=== PATIENT | female | born 1975 | race Caucasian/White ===

== ENCOUNTER 2017-12-28 23:33 | Emergency (ER) | payer SELFPAY ==
[2017-12-28 23:34] VITALS: BP 109/78; PULSE 92; RESP 18; TEMP 37.1; O2SAT 97; BMI 29.8
[2017-12-28 23:42] VITALS: O2SAT 97
[2017-12-28] MEDS: Ipratropium/Albuterol Sulfate 3 ML AMPUL.NEB INHALATION (23:52)
[2017-12-28 23:53] VITALS: PULSE 95; RESP 12
--- NOTE | 2017-12-29 00:19 | ED.DCSUM_ITS ---
- ER Visit Summary Date of Service: 12/29/17 Chief Complaint: [Cough and shortness of breath] History of Present Illness: The patient is a 42 F [presents to the emergency department complaint of cough and shortness of breath that started about a week ago. Patient complains of some mild exertional dyspnea. Patient states the cough has become productive recently but she swallows the sputum and has not really looked at it. Patient said subjective fever at home as well as chills and sweats. 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 Patient denies any ear pain. She denies any sore throat. She denies any chest pain. She denies recent travel or surgery.] Physical Examination: [HEENT-PERRLA, EOMI. Cranial nerves II through XII grossly intact. TMs clear. Mucous membranes moist. No adenopathy. Cardiovascular-regular rate and rhythm without murmur or ectopy Lungs-clear to auscultation, chest wall stable without crepitus or subcu emphysema Abdomen-normoactive bowel sounds, soft, nontender, no rebound or rigidity, no peritoneal signs. Extremities-intact ?4, normal range of motion, normal pulses, atraumatic] Test Results: [None indicated] Emergency Department Course and Treatment: [Patient was given a DuoNeb aerosol and she did symptomatically feel improved.] Patient was given a dose of Zithromax. Treatment Plan: [Patient will be given a albuterol MDI and a prescription for Zithromax.] Disposition: [Discharged home in stable condition] Impression: [Bronchitis] This note was generated with [employer] dictation software. It may contain incorrect words, spelling, and punctuation that were not noted in review of the chart prior to signing ED Disposition - Plan for ED Patient: Chief Complaint: Shortness of Breath Referrals: Care Physician,No Primary [Primary Care Provider] -
--- NOTE | 2017-12-29 00:19 | ED.DEP ---
ED Disposition - Plan for ED Patient: Chief Complaint: Shortness of Breath Instructions: ED Upper Resp Infec Abx Tx Prescriptions: Azithromycin [Zithromax] 250 mg PO DAILY #4 tab Benzonatate [Tessalon Perle] 200 mg PO TID PRN PRN #20 cap PRN Reason: Cough Referrals: Care Physician,No Primary [Primary Care Provider] - Osmar Hinojosa MD [STAFF PHYSICIAN] - 5-7 Days
[2017-12-29 00:24] VITALS: BP 132/86; PULSE 88; RESP 16; O2SAT 98
[2017-12-29] MEDS: Azithromycin 250 MG Tablet 500 MG PO (00:25)
== END 2017-12-29 00:34 | disposition home or self-care (01) ==
LOC: ED 12-29 00:07
PROVIDERS: Emergency Provider Emergency Medicine
DX: J40 Bronchitis, not specified as acute or chronic (principal); Z72.0 Tobacco use
CPT/HCPCS: 94640; 99283

== ENCOUNTER 2018-02-07 16:23 | Emergency (ER) | payer OTHER, SELFPAY ==
[2018-02-07 16:24] VITALS: BP 103/64; PULSE 76; RESP 16; TEMP 36.7; O2SAT 98; BMI 30.9
--- NOTE | 2018-02-07 16:39 | ED.DEP ---
ED Disposition - Plan for ED Patient: Chief Complaint: Other, Pain/Inj Instructions: ED Sciatica Referrals: [facility] [GROUP OF PHYSICIANS] -
--- NOTE | 2018-02-07 16:43 | ED.VISSUMM ---
- ER Visit Summary Date of Service: 02/07/18 Chief Complaint: Back pain History of Present Illness: The patient is a 42 F presenting with left-sided back pain. 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 She states this occurred again today. She later had a sensation that went from her foot to her neck that has now resolved. She has no bowel or bladder incontinence. No weakness. She is able to ambulate without difficulty. No other complaints. Physical Examination: Vitals are stable. Patient is afebrile. Alert no acute distress. HEENT exam is unremarkable. Neck is supple, nontender Lungs are clear and equal bilaterally. Heart is regular rate and rhythm. Abdomen is soft nontender nondistended. Extremities are unremarkable. Back: Left paraspinal lumbar muscle tenderness, no midline tenderness Skin is warm and dry. No rash No focal neurologic deficit. Normal strength and sensation. No foot drop Remainder of exam is unremarkable. Emergency Department Course and Treatment: Patient was offered IM or p.o. medications and declined. She states she was advised by her employer to come to the ED. I do not feel x-rays are indicated at this time. She will follow-up with [facility]. She is advised signs and symptoms for which to return to ED. She will return to the ED if worsening complaints. Disposition: Discharge home Impression: Sciatica This note was generated with [employer] dictation software. It may contain incorrect words, spelling, and punctuation that were not noted in review of the chart prior to signing ED Disposition - Plan for ED Patient: Chief Complaint: Other, Pain/Inj Instructions: ED Sciatica Referrals: [facility] [GROUP OF PHYSICIANS] -
--- NOTE | 2018-02-07 16:47 | ED.DCSUM_ITS ---
- ER Visit Summary Date of Service: 02/07/18 Chief Complaint: Back pain History of Present Illness: The patient is a 42 F presenting with left-sided back pain. 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 She states this occurred again today. She later had a sensation that went from her foot to her neck that has now resolved. She has no bowel or bladder incontinence. No weakness. She is able to ambulate without difficulty. No other complaints. Physical Examination: Vitals are stable. Patient is afebrile. Alert no acute distress. HEENT exam is unremarkable. Neck is supple, nontender Lungs are clear and equal bilaterally. Heart is regular rate and rhythm. Abdomen is soft nontender nondistended. Extremities are unremarkable. Back: Left paraspinal lumbar muscle tenderness, no midline tenderness Skin is warm and dry. No rash No focal neurologic deficit. Normal strength and sensation. No foot drop Remainder of exam is unremarkable. Emergency Department Course and Treatment: Patient was offered IM or p.o. medications and declined. She states she was advised by her employer to come to the ED. I do not feel x-rays are indicated at this time. She will follow-up with [facility]. She is advised signs and symptoms for which to return to ED. She will return to the ED if worsening complaints. Disposition: Discharge home Impression: Sciatica This note was generated with [employer] dictation software. It may contain incorrect words, spelling, and punctuation that were not noted in review of the chart prior to signing ED Disposition - Plan for ED Patient: Chief Complaint: Other, Pain/Inj Instructions: ED Sciatica Referrals: [facility] [place] [GROUP OF PHYSICIANS] -
== END 2018-02-07 17:21 | disposition home or self-care (01) ==
PROVIDERS: Emergency Provider Emergency Medicine
DX: M54.42 Lumbago with sciatica, left side (principal); Z72.0 Tobacco use
CPT/HCPCS: 99282

== ENCOUNTER 2018-03-17 14:14 | Emergency (ER) | payer OTHER, SELFPAY ==
[2018-03-17 14:16] VITALS: BP 113/57; PULSE 82; RESP 14; TEMP 36.8; O2SAT 97; BMI 29.1
--- NOTE | 2018-03-17 14:40 | RAD_ITS ---
STUDY: X-RAY - RIGHT SHOULDER REASON FOR EXAM: Female, 42 years old. Pain following injury. TECHNIQUE: 4 view(s) of the shoulder. COMPARISON: None. FINDINGS: Normal glenohumeral articulation. Normal acromioclavicular joint. Normal acromion. Normal humeral head and visualized proximal humerus. The soft tissue structures are unremarkable. Normal visualized pulmonary apex. RAD/Shoulder min 2 Views IMPRESSION: Normal x-ray examination of the shoulder. Electronically Signed: Fabian Swain MD at 15:14 EST , Service support ,
[2018-03-17] MEDS: Naproxen 500 MG Tablet PO (14:42)
--- NOTE | 2018-03-17 15:42 | ED.DCSUM_ITS ---
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 She continued to work and noted that her pain would worsen when she would hang her arm to her side. Someone touched on the back of her shoulder causing significant pain. She denies paresthesias. She is right-hand dominant. Physical Examination: Vital signs unremarkable. Patient sitting upright in bed no acute distress. Head neck examination unremarkable. No C-spine tenderness. Heart is regular rate and rhythm. Lung sounds are clear. Right upper extremity examination reveals reproducible tenderness of the posterior shoulder along the supraspinatus muscle and tendon. She is full range of motion at the shoulder. She has strong distal pulses. Test Results: Right shoulder x-rays are unremarkable. Emergency Department Course and Treatment: Test results are discussed with the patient. I am concerned that she may have strained the tendon from the supraspinatus muscle. She will be given Naprosyn and a sling. She will follow up with [facility]. Treatment Plan: [] Disposition: Discharge Impression: Right shoulder sprain This note was generated with [employer] dictation software. It may contain incorrect words, spelling, and punctuation that were not noted in review of the chart prior to signing ED Disposition - Plan for ED Patient: Disposition: Home or Assisted Living Instructions: ED Sprain Shoulder Prescriptions: Naproxen [Naprosyn] 500 mg PO BID PRN PRN #20 tablet PRN Reason: Pain [facility] [GROUP [facility] PHYSICIANS] - 3-5 Days
--- NOTE | 2018-03-17 15:42 | ED.DEP ---
ED Disposition - Plan for ED Patient: Disposition: Home or Assisted Living Instructions: ED Sprain Shoulder Prescriptions: Naproxen [Naprosyn] 500 mg PO BID PRN PRN #20 tablet PRN Reason: Pain Referrals: [facility] [GROUP OF PHYSICIANS] - 3-5 Days
[2018-03-17 15:55] VITALS: BP 113/47; PULSE 63; RESP 18; O2SAT 100
== END 2018-03-17 15:56 | disposition home or self-care (01) ==
PROVIDERS: Emergency Provider Emergency Medicine
DX: S43.401A Unspecified sprain of right shoulder joint, initial encounter (principal); Z72.0 Tobacco use; X50.0XXA Overexertion from strenuous movement or load, initial encounter; X50.9XXA Other and unspecified overexertion or strenuous movements or postures, initial encounter; Y93.F2 Activity, caregiving, lifting; Y92.128 Other place in nursing home as the place of occurrence of the external cause; Y99.0 Civilian activity done for income or pay
CPT/HCPCS: 73030; 99283

== ENCOUNTER → 2020-01-09 10:46 | Outpatient (CLI) | payer MEDICAID, SELFPAY ==
[2020-01-09 10:12] VITALS: BMI 29.9
[2020-01-09 13:35] LABS: T4 Free Direct 0.91 ng/dL (0.76-1.46); Thyroid Stim Hormone (TSH) 0.88 uIU/mL (0.358-3.74)
[2020-01-10 16:08] LABS: Thyroid Peroxidase AB < 9 IU/mL (0-34)
== END ==
PROVIDERS: Referring Provider Internal Medicine Endocrinology, Diabetes & Metabolism; Visit Provider Internal Medicine Endocrinology, Diabetes & Metabolism
DX: E04.2 Nontoxic multinodular goiter (principal)
CPT/HCPCS: 36415; 84439; 84443; 86376

== ENCOUNTER 2020-01-16 18:08 | Emergency (ER) | payer MEDICAID, SELFPAY ==
[2020-01-09 10:12] VITALS: BMI 29.9
[2020-01-16 18:09] VITALS: BP 126/70; PULSE 97; RESP 18; TEMP 37.5; O2SAT 98; BMI 30.5
[2020-01-16 18:46] VITALS: O2SAT 97
--- NOTE | 2020-01-16 19:36 | ED.VISSUMM ---
- ER Visit Summary Date of Service: 01/16/20 Chief Complaint: Cough and shortness of breath History of Present Illness: The patient is a 44 F who presents with cough and shortness of breath that began today. Patient states she feels like she has some squeezing in her chest. Patient states this is worse with deep breathing. Patient states she feels like she is unable to take a deep breath. Patient states she has been coughing up some yellow sputum. Patient also admits to some sinus pressure and rhinorrhea. Patient denies any fevers or chills. Patient states she does feel lightheaded at times. Patient states she also has had some nausea and vomiting today. Patient states she called her doctor who told her she has Covid and needs to go to the ER. Physical Examination: Vital signs are stable. Patient is afebrile. Patient is in no acute distress. Oral mucosa is pink and moist. Neck is supple. Trachea is midline. There is no JVD noted. Heart was regular rate and rhythm. Lungs are clear and equal bilaterally. Abdomen is soft. Bowel sounds are normal. There is no tenderness. There is no rebound or guarding noted. Skin is warm dry. Cranial nerves II through XII are intact. There are no focal motor or sensory deficits noted. Extremities are intact. There is no calf tenderness or edema. Test Results: Portable 1 view chest x-ray was obtained. On my interpretation, lung mcduffie are clear. There is normal cardiac silhouette. Bony thorax is normal. There is no acute process noted. Radiologist also interpreted the x-ray and agrees. CBC and comprehensive metabolic profile were obtained and were within normal limits. D-dimer was normal. Lactate was normal. Covid antigen test was obtained and was positive. Emergency Department Course and Treatment: Patient was advised of her findings. Patient was instructed to quarantine herself for the next 2 weeks. Patient was instructed to follow-up with her primary care physician in 7-10 days. Patient understood and was agreeable with the plan. All questions were answered. Disposition: Discharge home Impression: 1. COVID-19 This note was generated with [employer].ruation software. It may contain incorrect words, spelling, and punctuation that were not noted in review of the chart prior to signing ED Disposition - Plan for ED Patient: Disposition: Home or Assisted Living Diagnosis: COVID-19 Instructions: Coronavirus Disease 2019 (COVID-19): Caring for Yourself or Others, Coronavirus Disease 2019 (COVID-19): Overview Referrals: Care Physician,No Primary [Primary Care Provider] - 1-2 Weeks
[2020-01-16 20:08] VITALS: BP 112/65; PULSE 88; RESP 15; O2SAT 96
[2020-01-16 20:13] LABS: Absolute Lymphocyte Count 1.67 X10^3/uL (0.83-4.51); Absolute Neutrophil Count 5.4 X10^3/uL (2.0-7.7); Basophil# 0.07 X10^3/uL; Basophil% 0.8 % (0-1); Eosinophil# 0.24 X10^3/uL; Eosinophils% 2.9 % (0-5); Hematocrit 44.1 % (37-47); Hemoglobin 14.5 g/dL (12.0-15.0); Lymphocyte # 1.67 X10^3/ul (4.0); Lymphocyte % 20.2 % (19-41); Mean Corp Hgb Conc 32.9 g/dL (32-36); Mean Corpuscular Hgb 28.7 pg (27.0-32.0); Mean Corpuscular Volume 87.3 fL (81-99); Mean Platelet Vol. 9.8 fl (6.2-12.0); Monocyte# 0.86 X10^3/uL; Monocyte% 10.4 % (0-10); NRBC Flagged by Analyzer 0 % (0-5); Neutrophil # 5.41 X10^3/uL (2.7-7.7); Neutrophil % 65.5 % (47-70); Platelet Count 314 K/mm3 (150-450); RBC Distribution Width SD 44.5 fl (35.1-43.9); Red Blood Count 5.05 M/mm3 (4.2-5.4); White Blood Count 8.3 K/mm3 (4.4-11.0)
--- NOTE | 2020-01-16 20:19 | RAD_ITS ---
STUDY: X-RAY CHEST REASON FOR EXAM: Female, 44 years old. COUGH, SOB TECHNIQUE: Single frontal view of the chest. COMPARISON: None. FINDINGS: There is no focal consolidation. Normal size heart. Normal mediastinum and terri. Normal visualized pulmonary arteries. Normal visualized aortic arch and descending thoracic aorta. Normal visualized thoracic spine. Normal visualized ribs, clavicles, and shoulders. There is no demonstrated abnormality of the visualized soft tissue structures of the upper abdomen. RAD/Chest 1 View (Portable) IMPRESSION: No acute cardiopulmonary process. Electronically Signed: Zuri Treviño MD at 20:33 EST Tel , Service support ,
[2020-01-16 20:28] LABS: ALB/GLOB Ratio 1.3 RATIO (0.9-2.4); AST(SGOT) 18 U/L (15-37); Alanine Aminotransfer ALT/SGPT 27 U/L (13-56); Albumin, Serum 3.6 g/dL (3.2-5.0); Alkaline Phosphatase 94 U/L (45-117); Anion Gap 4 (5-15); BUN 16 mg/dL (7-18); BUN/Creat Ratio 16.2 RATIO (10-20); Calcium,Total 8.5 mg/dL (8.5-10.1); Chloride 113 mmol/L (98-107); Creatinine, Serum 0.99 mg/dL (0.55-1.02); EST Glomerular Filtration Rate 65 mL/min (>60); Est Glom Filt Rate - Afr Amer 78 mL/min (>60); Estimated Creatinine Clearance 79.23 ml/min; Globulin 2.8 g/dL (2.2-4.2); Glucose 127 mg/dL (74-106); Potassium 3.9 mmol/L (3.5-5.1); Protein, Total 6.4 g/dL (6.4-8.2); Sodium Level 142 mmol/L (136-145)
[2020-01-16 21:00] VITALS: BP 100/55; PULSE 90; RESP 14; O2SAT 97
[2020-01-16 21:03] LABS: Lactic Acid 0.8 mmol/L (0.4-1.9)
[2020-01-16 21:49] VITALS: BP 109/57; PULSE 83; RESP 13; O2SAT 98
[2020-01-16 22:17] VITALS: BP 109/57; PULSE 83; RESP 13; O2SAT 98
== END 2020-01-16 22:47 | disposition home or self-care (01) ==
PROVIDERS: Emergency Provider Emergency Medicine
DX: U07.1 COVID-19 (principal); F32.9 Major depressive disorder, single episode, unspecified; Z72.0 Tobacco use; Z79.899 Other long term (current) drug therapy
CPT/HCPCS: 71045; 80053; 83605; 85025; 85379; 87426; 99285; A4216

== ENCOUNTER 2020-07-08 19:34 | Emergency (ER) | payer MEDICAID, SELFPAY ==
[2020-07-08 19:35] VITALS: BP 109/73; PULSE 84; RESP 16; TEMP 36.7; O2SAT 96; BMI 30.8
--- NOTE | 2020-07-08 20:39 | EDS_ITS ---
HPI History of Present Illness Chief Complaint: Headache Informant: patient Onset/Context/Timing Onset: Today Context: Gradual Timing: Continuous Quality -Headache: Positive for Similar Prior Headaches Location: Frontal Worsened by: Light Relieved by: Excedrin Migraine Associated Symptoms/Injury Associated Symptoms: Positive for Nausea, Vomiting, Preceding Aura, Visual Changes, Blurred Vision and Photophobia; Negative for Fever, Sore Throat, Sinus Pressure, Numbness, Tingling and Visual Loss Narrative Narrative: Patient presents with migraine headache that began today. Patient states it began when she woke up and has gradually gotten worse throughout the day. Patient states she has a history of migraine headaches. Patient states this feels similar to prior migraine headaches. Patient states the pain is over the frontal area. Patient admits to some scotoma earlier today. Patient also admits to some blurred vision. Patient states that when she sees spots and her vision gets blurry, she knows migraine is coming. Patient states she took some Excedrin Migraine along with some coffee. Patient states she had an episode of nausea and vomiting after that. Patient states she went to lay down and her headache improved slightly when she woke up. Patient states that it then got worse again. Patient denies any trauma or injury. Patient admits to some photophobia. [facility] Medical History (Updated 07/08/20 @ 21:[address] Phan Avery DO) Back pain Endometrial Ablation Headache Osteoarthritis Tubal occlusion Home Medications bupropion HCl 150 mg PO DAILY 01/16/20 [History Last Taken Unknown] meloxicam 15 mg PO DAILY 01/16/20 [History Last Taken Unknown] Allergy/AdvReac Type Severity Reaction Status Date / Time No Known Allergies Allergy Verified 01/16/20 18:47 Family History Father Alcohol abuse Cancer Mother Anxiety Depression mental disorders Seizures Grandmother Arthritis Hypertension Grandfather Myocardial infarction Surgical History History of partial hysterectomy Social History Smoking Status: Current every day smoker tobacco type: cigarettes ROS ROS ED Constitutional Constitutional ED: Reports chills, subjective and sweats; Denies fever(s) Eyes Eyes: Reports blurry vision and change in vision ENT ENT ED: Denies rhinorrhea or sore throat Cardiovascular Cardiovascular: Denies chest pain or palpitations Respiratory/Chest Respiratory/Chest: Denies cough or dyspnea Gastrointestinal Gastrointestinal: Reports nausea and vomiting Genitourinary Genitourinary ED: Denies dysuria or hematuria Musculoskeletal Musculoskeletal: Denies back pain or neck pain Integumentary Denies abscess or rash Neurologic Neurologic: Reports headache(s); Denies paresthesias or weakness Allergic/Immunologic Allergic/Immunologic ED: Denies mouth swelling or urticaria EXAM Physical Exam Const Vital Signs: 07/08/20 19:35 07/08/20 21:08 Temperature 98.0 F Temperature Source Temporal Pulse Rate 84 Respiratory Rate 16 16 Blood Pressure 109/73 Blood Pressure Mean 85 Pulse Ox 96 Oxygen Delivery Method Room Air Positive well nourished and well developed General Appearance ED: well developed HEENT Reports normocephalic and moist mucous membranes Neck supple and no JVD Resp normal respiratory effort and clear to auscultation bilaterally Cardio regular rate and regular rhythm GI non-tender and non-distended Auscultation: normoactive bowel sounds Palpation: soft Neuro oriented x3 and CN's II-XII intact bilaterally Sensorium / Orientation: awake and alert Speech: speech normal Motor Exam: strength 5/5 throughout Psych mental status grossly normal MDM MDM MDM Narrative Medical decision making narrative: Patient was given IV fluids, Reglan, Benadryl, and Toradol. Patient felt better on reevaluation. Patient wants to go home. Patient was instructed to rest in a dark quiet room. Patient was instructed drink plenty of fluids. Patient was instructed to follow-up with her primary care physician in 5 to 7 days. Patient understood and was agreeable with the plan. All questions were answered. Discharge Plan Triage Chief Complaint: Headache ED Provider: Phan Avery Dx/Rx/DC Orders Clinical Impression: Headache, migraine Instructions: ED, Migraine (Classical) Prescriptions: No Action meloxicam 15 MG tablet 15 mg PO DAILY RF: 0 bupropion HCl 150 MG tablet extended release 24 hr 150 mg PO DAILY RF: 0 Primary Care Provider: Care Physician,No Primary Referrals: Care Physician,No Primary [Primary Care Provider] - 5-7 Days Disposition Disposition: Home, self care
[2020-07-08 21:08] VITALS: RESP 16
[2020-07-08] MEDS: 0.9% Normal Saline 1,000 ML 999 ML IV (21:13)
[2020-07-08] MEDS: Metoclopramide 10 MG/2 ML Vial IV (21:14)
[2020-07-08] MEDS: Ketorolac 30 MG/ML Syringe IV (21:14)
== END 2020-07-08 21:55 | disposition home or self-care (01) ==
PROVIDERS: Emergency Provider Emergency Medicine
DX: G43.909 Migraine, unspecified, not intractable, without status migrainosus (principal); F17.210 Nicotine dependence, cigarettes, uncomplicated
CPT/HCPCS: 96361; 96374; 96375; 99282; J7030; A4216

== ENCOUNTER → 2020-08-01 11:08 | Outpatient (CLI) | payer MEDICAID, SELFPAY ==
[2020-07-08 19:35] VITALS: BMI 30.8
--- NOTE | 2020-08-01 11:11 | RAD_ITS ---
STUDY: X-RAY - LUMBAR SPINE REASON FOR EXAM: Female, 45 years old. FACET ARTHROPATHY TECHNIQUE: view(s) of the lumbar spine were obtained. COMPARISON: None FINDINGS: Normal lumbar lordosis. There is no substantial scoliosis. There is a normal alignment of the vertebrae. Normal vertebral bodies and endplates. Normal disc space heights throughout the lumbar spine except to note moderate. Narrowing and osteophyte formation at the level of L5-S1 There is no evidence of spondylolysis or spondylolisthesis. Otherwise the spinous and transverse processes as well as the pedicles are intact. The soft tissue structures are unremarkable. RAD/Lumbar Spine 2 or 3 Views IMPRESSION: Narrowing of L5-S1 with minimal osteophyte formation. Electronically Signed: Kayce Barnes, at 12:04 EDT Tel , Service support ,
--- NOTE | 2020-08-01 11:11 | RAD_ITS ---
STUDY: X-RAY EXAMINATION: SCOLIOSIS SERIES REASON FOR EXAM: Female, 45 years old. SCOLIOSIS TECHNIQUE: 1 view(s) of the thoracolumbar spine were obtained in the upright standing position. COMPARISON: None. FINDINGS: There is a 5 degree dextroscoliosis of the thoracic spine with the apex of the convexity at the T7 level. There is a 11 degree levoscoliosis scoliosis of the lumbar spine with the apex of the convexity at the L2 level. Normal kyphosis of the thoracic spine. Normal thoracic vertebrae and endplates. Normal disc space heights of the thoracic spine. Normal lordosis of the lumbar spine. Normal lumbar vertebrae and endplates. Normal disc space heights of the lumbar spine. The soft tissue structures are unremarkable. RAD/Scoliosis 1 view IMPRESSION: Mild dextro scoliosis of the thoracic spine and levoscoliosis lumbar spine as described above. Electronically Signed: Pranay Beavers MD at 12:08 EDT Tel , Service support ,
[2020-08-01 11:20] LABS: Red Blood Cells-Urine 0 SEEN /hpf (0-5)
[2020-08-01 12:26] LABS: Absolute Lymphocyte Count 2.98 X10^3/uL (0.83-4.51); Absolute Neutrophil Count 5.9 X10^3/uL (2.0-7.7); Basophil# 0.07 X10^3/uL; Basophil% 0.7 % (0-1); Eosinophil# 0.19 X10^3/uL; Eosinophils% 1.9 % (0-5); Hematocrit 44.8 % (37-47); Hemoglobin 14.7 g/dL (12.0-15.0); Lymphocyte # 2.98 X10^3/ul (0.83-4.51); Lymphocyte % 30.5 % (19-41); Mean Corp Hgb Conc 32.8 g/dL (32-36); Mean Corpuscular Hgb 28.4 pg (27.0-32.0); Mean Corpuscular Volume 86.5 fL (81-99); Mean Platelet Vol. 9.4 fl (6.2-12.0); Monocyte# 0.62 X10^3/uL; Monocyte% 6.3 % (0-10); NRBC Flagged by Analyzer 0 % (0-5); Neutrophil # 5.87 X10^3/uL (2.7-7.7); Neutrophil % 60.2 % (47-70); Platelet Count 349 K/mm3 (150-450); RBC Distribution Width SD 44.6 fl (35.1-43.9); Red Blood Count 5.18 M/mm3 (4.2-5.4); White Blood Count 9.8 K/mm3 (4.4-11.0)
[2020-08-01 12:40] LABS: Color, Urine Yellow (Yellow); Glucose, Dipstick Normal (Normal); Ketone-Dipstick Negative (Negative); Leukocyte Esterase-Dipstick Negative /ul (Negative); Nitrite-Dipstick Negative (Negative); Occult Blood-Urine Negative /ul (Negative); Protein-Dipstick Negative (Negative); Urine Bilirubin Dipstick Negative (Negative); Urine Clarity Clear (Clear); Urine Urobilinogen Normal (Normal)
[2020-08-01 12:49] LABS: Squamous Epithelial Cells - UA 5-10 SEEN /hpf (5-10); White Blood Cells 0-5 SEEN /hpf (0-5)
[2020-08-01 12:50] LABS: Bacteria RARE /hpf (None Seen); Mucous, Urine RARE /hpf (<or=2+)
[2020-08-01 13:18] LABS: ALB/GLOB Ratio 1.3 RATIO (0.9-2.4); AST(SGOT) 19 U/L (15-37); Alanine Aminotransfer ALT/SGPT 21 U/L (13-56); Albumin, Serum 3.8 g/dL (3.2-5.0); Alkaline Phosphatase 77 U/L (45-117); Anion Gap 7 (5-15); BUN 13 mg/dL (7-18); BUN/Creat Ratio 16.7 RATIO (10-20); Calcium,Total 8.5 mg/dL (8.5-10.1); Chloride 108 mmol/L (98-107); Creatinine, Serum 0.78 mg/dL (0.55-1.02); EST Glomerular Filtration Rate 85 mL/min (>60); Est Glom Filt Rate - Afr Amer 103 mL/min (>60); Glucose 91 mg/dL (74-106); Potassium 3.8 mmol/L (3.5-5.1); Protein, Total 6.8 g/dL (6.4-8.2); Sodium Level 138 mmol/L (136-145); T4 Free Direct 0.99 ng/dL (0.76-1.46); Thyroid Stim Hormone (TSH) 1.25 uIU/mL (0.358-3.74)
== END ==
PROVIDERS: PCP Family Medicine; Referring Provider Family Medicine; Visit Provider Family Medicine
DX: M41.9 Scoliosis, unspecified (principal); M47.819 Spondylosis without myelopathy or radiculopathy, site unspecified; E04.2 Nontoxic multinodular goiter; R06.02 Shortness of breath; Z72.0 Tobacco use
CPT/HCPCS: 36415; 72081; 72100; 80053; 81001; 84439; 84443; 85025

== ENCOUNTER → 2021-01-08 08:33 | Outpatient (CLI) | payer MEDICAID, SELFPAY ==
[2021-01-08 12:30] LABS: Absolute Lymphocyte Count 3.24 X10^3/uL (0.83-4.51); Absolute Neutrophil Count 7.8 X10^3/uL (2.0-7.7); Basophil# 0.07 X10^3/uL; Basophil% 0.6 % (0-1); Eosinophil# 0.29 X10^3/uL; Eosinophils% 2.4 % (0-5); Hematocrit 46.7 % (37-47); Hemoglobin 15.2 g/dL (12.0-15.0); Lymphocyte # 3.24 X10^3/ul (0.83-4.51); Lymphocyte % 26.3 % (19-41); Mean Corp Hgb Conc 32.5 g/dL (32-36); Mean Corpuscular Hgb 28.5 pg (27.0-32.0); Mean Corpuscular Volume 87.6 fL (81-99); Mean Platelet Vol. 9.6 fl (6.2-12.0); Monocyte# 0.88 X10^3/uL; Monocyte% 7.1 % (0-10); NRBC Flagged by Analyzer 0 % (0-5); Neutrophil # 7.81 X10^3/uL (2.7-7.7); Neutrophil % 63.2 % (47-70); Platelet Count 374 K/mm3 (150-450); RBC Distribution Width SD 45.1 fl (35.1-43.9); Red Blood Count 5.33 M/mm3 (4.2-5.4); White Blood Count 12.3 K/mm3 (4.4-11.0)
[2021-01-08 12:33] LABS: Vitamin B12 349 pg/mL (211-911); Vitamin D,25 Hydroxy 30.9 ng/mL
[2021-01-08 12:41] LABS: Ferritin 38 ng/mL (8-252); Free T3 2.8 pg/mL (2.18-3.98); T4 Free Direct 0.91 ng/dL (0.76-1.46); Thyroid Stim Hormone (TSH) 1.35 uIU/mL (0.358-3.74)
== END ==
PROVIDERS: PCP Family Medicine; Referring Provider Internal Medicine Endocrinology, Diabetes & Metabolism; Visit Provider Internal Medicine Endocrinology, Diabetes & Metabolism
DX: E04.2 Nontoxic multinodular goiter (principal); R20.2 Paresthesia of skin; R25.2 Cramp and spasm; E55.9 Vitamin D deficiency, unspecified
CPT/HCPCS: 36415; 82306; 82607; 82728; 84439; 84443; 84481; 85025

== ENCOUNTER 2021-03-02 21:39 | Emergency (ER) | payer MEDICAID, SELFPAY ==
[2021-03-02 21:40] VITALS: BP 106/48; PULSE 86; RESP 18; TEMP 35.7; O2SAT 98; BMI 25.8
--- NOTE | 2021-03-02 21:58 | EX.ED.DYSGE1 ---
HPI History of Present Illness Chief Complaint: General Illness Informant: patient Onset/Context/Timing Onset: Today Current Severity: Mild Maximum Severity: Moderate Narrative Narrative: Patient presents with vomiting, sore throat, body aches, cough. Patient states that she that this morning she had body aches. Temperature has been between 99 and 100. She had a coughing fit this morning with posttussive emesis. She has been able to eat today and keep food down. 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 She was last tested for Covid 4 days ago and was negative. [facility] Medical History Back pain Cramp in limb Endometrial Ablation Headache Osteoarthritis Paresthesia Tubal occlusion Home Medications bupropion HCl 150 mg PO DAILY 01/16/20 [History Last Taken Unknown] meloxicam 15 mg PO DAILY 01/16/20 [History Last Taken Unknown] ondansetron 4 mg PO Q8H PRN #10 tab 03/02/21 [Rx Last Taken Unknown] Allergy/AdvReac Type Severity Reaction Status Date / Time No Known Allergies Allergy Verified 03/02/21 21:44 Family History Father Alcohol abuse Cancer Mother Anxiety Depression mental disorders Seizures Grandmother Arthritis Hypertension Grandfather Myocardial infarction Surgical History History of partial hysterectomy Social History Smoking Status: Current every day smoker tobacco type: cigarettes ROS ROS ED Constitutional Constitutional ED: Reports chills and fever(s) Eyes Eyes: Denies blurry vision ENT ENT ED: Reports sore throat Cardiovascular Cardiovascular: Denies chest pain Respiratory/Chest Respiratory/Chest: Reports cough and dyspnea Gastrointestinal Gastrointestinal: Reports abdominal pain, nausea and vomiting Genitourinary Genitourinary ED: Denies dysuria Musculoskeletal Musculoskeletal: Reports myalgias Integumentary Denies rash Neurologic Neurologic: Reports headache(s) Psychiatric Psychiatric: Denies anxiety or depression Endocrine Endocrinology: Denies polydipsia or polyuria Allergic/Immunologic Allergic/Immunologic ED: Denies urticaria EXAM Physical Exam Const Vital Signs: 03/02/21 21:40 03/02/21 22:00 Temperature 96.2 F L Temperature Source Temporal Pulse Rate 86 Respiratory Rate 18 19 H Blood Pressure 106/48 L Blood Pressure Mean 67 Pulse Ox 98 Oxygen Delivery Method Room Air Positive well nourished and well developed General Appearance ED: well developed HEENT Reports moist mucous membranes Eyes PERRL and EOMs intact bilaterally Neck supple Chest Wall inspection of chest normal and palpation of chest normal Resp normal respiratory effort and clear to auscultation bilaterally Cardio regular rate and regular rhythm GI non-tender Auscultation: hypoactive bowel sounds Palpation: soft Extremity normal to inspection Neuro oriented x3 Sensorium / Orientation: alert Psych mental status grossly normal Skin no rashes or lesions noted MDM MDM MDM Narrative Medical decision making narrative: Influenza and Covid swab obtained. Portable chest x-ray ordered. Patient given Zofran for nausea. Lab Data Attestation: I reviewed the patient's lab results. Labs: Covid: Negative Influenza: Negative Radiography Diagnostic Testing: Clinical Impression(s) from Imaging Studies Chest X-Ray 03/02/21 22:17 IMPRESSION: No acute radiographic abnormalities. Electronically Signed: Alexandre Coats MD at 22:39 EST Tel , Service support , Treatment and Re-Evaluation Comments:: Patient's Covid and influenza tests are negative. Chest x-ray reveals no focal infiltrate. Test results discussed with patient at bedside. Prescription for Zofran will be provided. Return instructions given. Discharge Plan Triage Chief Complaint: General Illness Other Complaint: Abd Pain ED Provider: Diana Liu Dx/Rx/DC Orders Clinical Impression: Viral syndrome Instructions: ED Viral Syndrome (Adult) Prescriptions: New ondansetron 4 mg tablet,disintegrating 4 mg PO Q8H PRN (Reason: nausea and vomiting) Qty: 10 RF: 0 No Action meloxicam 15 MG tablet 15 mg PO DAILY RF: 0 bupropion HCl 150 MG tablet extended release 24 hr 150 mg PO DAILY RF: 0 Primary Care Provider: Brant Quigley Referrals: Brant Quigley MD [Primary Care Provider] - 1 Week if not improving Disposition Disposition: Home, Self Care
[2021-03-02 22:00] VITALS: RESP 19
[2021-03-02] MEDS: Ondansetron ODT 4 MG Tablet PO (22:06)
--- NOTE | 2021-03-02 22:17 | RAD_ITS ---
INDICATION: cough EXAMINATION/TECHNIQUE: X-RAY - XR Chest 1 View COMPARISON: 01/16/2020. FINDINGS: The lungs are clear. The cardiomediastinal silhouette is unremarkable. No pleural effusion or pneumothorax. No acute osseous abnormalities. RAD/Chest 1 View (Portable) IMPRESSION: No acute radiographic abnormalities. Electronically Signed: Alexandre Coats MD at 22:39 EST Tel , Service support ,
[2021-03-02 23:06] VITALS: PULSE 88; O2SAT 98
== END 2021-03-02 23:09 | disposition home or self-care (01) ==
PROVIDERS: Emergency Provider Emergency Medicine; PCP Family Medicine; Visit Provider Emergency Medicine
DX: B34.9 Viral infection, unspecified (principal); R10.9 Unspecified abdominal pain; F17.210 Nicotine dependence, cigarettes, uncomplicated
CPT/HCPCS: 71045; 87426; 87804; 99283; A4216

== ENCOUNTER 2021-09-09 10:39 | Emergency (ER) | payer BC, MEDICAID, SELFPAY ==
[2021-09-09 10:40] VITALS: BP 106/41; PULSE 80; RESP 17; TEMP 36.6; O2SAT 96; BMI 27.6
--- NOTE | 2021-09-09 10:54 | ED.VIS.GI ---
HPI HPI - GI History of Present Illness Chief Complaint: GI Bleed Detail of Chief Complaint: Bright red blood per rectum Informant: patient Abdominal Pain/Flank Pain Onset: Hours (0600) Context: Sudden Onset Timing: Intermittent Quality: - (Patient denies rectal pain) Location: - (Not applicable) Current Severity: Not applicable Maximum Severity: Not applicable Worsened by: - (Bowel movement) Relieved by: - (None thing) Nausea/Vomiting/Emesis GI Symptom: Negative for Nausea or Vomiting Diarrhea/Melena/Hematochezia GI Symptom: Positive for Hematochezia and - (No history of recent constipation.); Negative for Diarrhea or Melena Onset: Today Associated Symptoms Associated Symptoms: Negative for Dysuria, Frequency, Hematuria or Urgency Narrative Narrative: Patient is a 46-year-old woman who presents with bright red blood per rectum. She has history of hemorrhoids and fissures in the remote past. She denies rectal pain. She denies diarrhea or constipation. She is not on an antiplatelet or anticoagulant. She is concerned because the bleeding has persisted. She denies orthostatic symptoms. She does bruise easily. Denies bleeding of her gums. Prior similar symptoms: Yes Recent Illness/Hospitalization: No PFSH PFSH Medical History Acute bronchitis, unspecified Acute maxillary sinusitis, unspecified Back pain Cramp in limb Endometrial Ablation Headache Osteoarthritis Paresthesia Tubal occlusion Home Medications bupropion HCl 150 mg 24 hr tablet, extended release 150 mg PO DAILY 01/16/20 [History Last Taken Unknown] meloxicam 15 mg tablet 15 mg PO DAILY 01/16/20 [History Last Taken Unknown] ondansetron 4 mg disintegrating tablet 4 mg PO Q8H PRN nausea and vomiting #10 tabs 03/02/21 [Rx Last Taken Unknown] amoxicillin 875 mg-potassium clavulanate 125 mg tablet 1 tab PO BID #20 tabs 05/27/21 [Rx Last Taken Unknown] Allergy/AdvReac Type Severity Reaction Status Date / Time No Known Allergies Allergy Verified 09/09/21 10:39 Family History Father Alcohol abuse Cancer Mother Anxiety Depression mental disorders Seizures Grandmother Arthritis Hypertension Grandfather Myocardial infarction Surgical History History of partial hysterectomy Social History (Updated 09/09/21 @ 10:[address] Armando Gomez MD) household members: spouse Smoking Status: Current every day smoker tobacco type: cigarettes substance use type: does not use ROS ROS ED Constitutional Constitutional ED: Reports other; Denies chills, fever(s), subjective, sweats or weight loss ENT ENT ED: Denies ear pain, rhinorrhea or sore throat Cardiovascular Cardiovascular: Reports other Details: Negative orthostatic symptoms ; Denies chest pain or palpitations Respiratory/Chest Respiratory/Chest: Denies dyspnea or dyspnea on exertion Gastrointestinal Gastrointestinal: Denies abdominal pain, constipation, diarrhea or melena Hematologic/Lymphatic Hematologic/Lymphatic: Denies easy bleeding or easy bruising EXAM Physical Exam Const Vital Signs: 09/09/21 10:40 Temperature 97.8 F Temperature Source Temporal Pulse Rate 80 Respiratory Rate 17 Blood Pressure 106/41 L Blood Pressure Mean 62 Pulse Ox 96 Oxygen Delivery Method Room Air Positive well nourished and well developed General Appearance ED: well developed and NAD; Negative for pallor HEENT Reports moist mucous membranes HEENT Narrative: ears normal. Nares patent. normocephalic and atraumatic Eyes PERRL and EOMs intact bilaterally General Eye ED: Negative for pale conjunctiva or scleral icterus Resp normal respiratory effort Cardio regular rate and regular rhythm GI non-tender, non-distended and no masses GI Narrative: No evidence of fissures, fistulas or hemorrhoids. There is a sentinel tag noted at approximately 5:00 lithotomy position. Digital exam cause slight discomfort. There is no palpable mass to suggest a thrombosed hemorrhoid. Stool is brown. Patient had anoscopy performed. Palpation: soft Extremity General Extremety ED: Negative for edema or tenderness General Extremity: Negative for edema Neuro CN's II-XII intact bilaterally, moves all extremities and gait normal Skin no wounds General Skin Exam: Negative for jaundice or pallor MDM MDM MDM Narrative Medical decision making narrative: Patient with bright red blood per rectal exam. No evidence of bleeding at this time. Stool was brown. Anoscopy was performed. Procedures Other Procedures Procedure(s): Anoscopy with battery service technician. Patient was left lateral decubitus position. There is 2 hemorrhoids noted at 5 and 7 o'clock in lithotomy position. The hemorrhoid at 5:00 is actively bleeding at this time. Patient was informed of results. She was discharged to home. Discharge Plan Triage Chief Complaint: GI Bleed ED Provider: Armando Gomez Dx/Rx/DC Orders Clinical Impression: Bleeding external hemorrhoids Instructions: ED Hemorrhoids Prescriptions: No Action amoxicillin-pot clavulanate 875-125 mg tablet 1 tab PO BID Qty: 20 0RF meloxicam 15 MG tablet 15 mg PO DAILY bupropion HCl 150 MG tablet extended release 24 hr 150 mg PO DAILY ondansetron 4 mg tablet,disintegrating 4 mg PO Q8H PRN (Reason: nausea and vomiting) Qty: 10 0RF Primary Care Provider: Brant Quigley Referrals: Brant Quigley MD [Primary Care Provider] - As Needed Disposition Disposition: Home, Self Care
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
== END 2021-09-09 11:09 | disposition home or self-care (01) ==
LOC: ED 11:05
PROVIDERS: Emergency Provider Emergency Medicine; PCP Family Medicine; Visit Provider Emergency Medicine
DX: K92.2 Gastrointestinal hemorrhage, unspecified (principal); K64.4 Residual hemorrhoidal skin tags; F17.210 Nicotine dependence, cigarettes, uncomplicated; Z87.898 Personal history of other specified conditions; M19.90 Unspecified osteoarthritis, unspecified site; Z79.899 Other long term (current) drug therapy
CPT/HCPCS: 46600; 99282

== ENCOUNTER 2022-11-29 14:51 | Emergency (ER) | payer OTHER, MEDICAID, SELFPAY ==
[2022-11-29 14:52] VITALS: BP 141/94; PULSE 99; RESP 22; TEMP 36.6; O2SAT 97; BMI 30.1
--- NOTE | 2022-11-29 15:20 | RAD_ITS ---
STUDY: X-RAY CHEST REASON FOR EXAM: Female, 47 years old. Chest pain TECHNIQUE: Single AP portable view of the chest. COMPARISON: Comparison is made with prior study dated March 02, 2021. FINDINGS: EKG electrodes are seen. Increased markings are seen at the right lung base suggestive of possible early infiltrate. Follow-up is recommended. There is no demonstrated pleural abnormality. Normal size heart. Normal mediastinum and terri. Normal visualized pulmonary arteries. Normal visualized aortic arch and descending thoracic aorta. Normal visualized thoracic spine. Normal visualized ribs, clavicles, and shoulders. There is no demonstrated abnormality of the visualized soft tissue structures of the upper abdomen. RAD/Chest 1 View (Portable) IMPRESSION: Increased markings at the right lung base suggestive of early infiltrate. Follow-up recommended. Electronically Signed: Fabian Swain MD at 15:43 EDT ,
[2022-11-29 15:26] LABS: Absolute Lymphocyte Count 3.22 X10^3/uL (0.83-4.51); Basophil# 0.06 X10^3/uL; Basophil% 0.5 % (0-1); Eosinophil# 0.13 X10^3/uL; Eosinophils% 1.2 % (0-5); Hematocrit 43.5 % (37-47); Hemoglobin 13.8 g/dL (12.0-15.0); Lymphocyte # 3.22 X10^3/ul (0.83-4.51); Lymphocyte % 28.8 % (19-41); Mean Corp Hgb Conc 31.7 g/dL (32-36); Mean Corpuscular Volume 88.2 fL (81-99); Monocyte# 0.75 X10^3/uL; Monocyte% 6.7 % (0-10); NRBC Flagged by Analyzer 0 % (0-5); Neutrophil # 6.99 X10^3/uL (2.7-7.7); Neutrophil % 62.4 % (47-70); Platelet Count 336 K/mm3 (150-450); RBC Distribution Width CV 13.5 % (11.6-14.6); RBC Distribution Width SD 43.6 fl (35.1-43.9); Red Blood Count 4.93 M/mm3 (4.2-5.4); White Blood Count 11.2 K/mm3 (4.4-11.0)
--- NOTE | 2022-11-29 15:27 | NURSING ---
NO OLD EKGS
[2022-11-29 15:43] LABS: Anion Gap 5 (5-15); BUN 19 mg/dL (7-18); BUN/Creat Ratio 19.5 RATIO (10-20); Calcium,Total 8.7 mg/dL (8.5-10.1); Chloride 110 mmol/L (98-107); Creatinine, Serum 0.97 mg/dL (0.55-1.02); EST Glomerular Filtration Rate 65 mL/min (>60); Est Glom Filt Rate - Afr Amer 79 mL/min (>60); Estimated Creatinine Clearance 78.37 ml/min; Glucose 101 mg/dL (74-106); Potassium 3.6 mmol/L (3.5-5.1); Sodium Level 139 mmol/L (136-145); Troponin-I HS (w/2H Reflex) 3 pg/mL (3.0-54.0)
--- NOTE | 2022-11-29 15:52 | CT_ITS ---
STUDY: CTA CHEST REASON FOR EXAM: Female, 47 years old. pleuritic cp RADIATION DOSAGE (If Supplied By Facility): CTDIvol = ( 10.31 ) mGy, DLP = ( 417.66 ) mGycm TECHNIQUE: The examination was performed with the intravenous administration of IV 100mL Isovue-370. Post-processing of the angiographic images was performed, with multiplanar reformation and 3D reconstruction. Individualized dose optimization techniques were used for this CT. COMPARISON: 11/29/2022 FINDINGS: Normal enhancement of the main pulmonary artery and right and left pulmonary arteries. Normal enhancement of the bilateral peripheral pulmonary arteries. There is no demonstrated pulmonary embolism. Normal thoracic aorta and visualized great vessels. There is no demonstrated aortic dissection. Normal heart and pericardium. Normal mediastinum. Normal hilar regions. Normal visualized trachea and bronchi. The lungs are well expanded. Normal pulmonary parenchyma. Normal pleura. Normal chest wall structures. Normal osseous structures. Normal visualized upper abdomen. CT/CTA Chest W/WO Contrast IMPRESSION: Normal CTA chest examination, without a demonstrated pulmonary embolism or arterial dissection. Electronically Signed: Pranay Beavers MD at 17:31 EDT ,
--- NOTE | 2022-11-29 15:56 | EDS_ITS ---
HPI History of Present Illness Chief Complaint: Chest Pain Detail of Chief Complaint: Midsternal chest pain radiating straight into her back. Began around 2:15 Informant: patient Onset/Context/Timing Activity at onset: sudden Timing: Continuous Quality: Positive for Aching, Dull and - (Feels like a fist going through the middle of her chest. Worse with deep breathing.) Location: Substernal Current Severity: Mild Maximum Severity: Moderate Worsened By: Breathing; Not Worsened By Exertion, Movement of Arm, Movement of Torso or Eating Relieved By: Nothing Associated Symptoms: Negative for Nausea, Vomiting, Diaphoresis, Dyspnea, Cough or Fever Narrative Prior Similar Symptoms: No Recent Illness/Hospitalization: No CVD Risk Factors: Negative for Hypertension, Diabetes, Hypercholesterolemia, Family History 1' </=55 or Smoking PE Risk Factors: Negative for Recent Travel/Surgery, Recent Immobilization, Prior DVT or PE, Cancer or OCP + Smoking + >/=35 PFSH PFSH Medical History Acute bronchitis, unspecified Acute maxillary sinusitis, unspecified Back pain Cramp in limb Endometrial Ablation Headache Osteoarthritis Paresthesia Tubal occlusion Home Medications bupropion HCl 150 mg 24 hr tablet, extended release 150 mg PO DAILY 01/16/20 [History Last Taken Unknown] meloxicam 15 mg tablet 15 mg PO DAILY 01/16/20 [History Last Taken Unknown] ondansetron 4 mg disintegrating tablet 4 mg PO Q8H PRN nausea and vomiting #10 tabs 03/02/21 [Rx Last Taken Unknown] prednisone 20 mg tablet 20 mg PO BID #10 tabs 04/13/22 [Rx Last Taken Unknown] Allergy/AdvReac Type Severity Reaction Status Date / Time Penicillins Allergy Intermediate Rash Verified 11/29/22 14:53 Family History Father Alcohol abuse Cancer Mother Anxiety Depression mental disorders Seizures Grandmother Arthritis Hypertension Grandfather Myocardial infarction Surgical History History of partial hysterectomy Social History household members: spouse Smoking Status: Former smoker substance use type: does not use ROS ROS ED ROS Narrative Denies recent illness. Denies recent exertional chest pain or exertional dyspnea. No history of DVT or PE or risk factors. Review of Systems ROS Unobtainable: Denies due to encephalopathy, due to endotracheal tube, due to mental condition, due to mental status or other Constitutional Constitutional ED: Denies chills, fever(s) or subjective Eyes Eyes: Reports none ENT ENT ED: Denies ear pain or rhinorrhea Cardiovascular Cardiovascular: Reports chest pain Respiratory/Chest Respiratory/Chest: Denies cough, dyspnea or dyspnea on exertion Gastrointestinal Gastrointestinal: Denies constipation, diarrhea, melena, nausea or vomiting Genitourinary Genitourinary ED: Denies dysuria or hematuria Musculoskeletal Musculoskeletal: Denies arthralgias Integumentary Denies abscess Neurologic Neurologic: Denies headache(s) or paresthesias Psychiatric Psychiatric: Denies anxiety, depression or suicidal ideation Hematologic/Lymphatic Hematologic/Lymphatic: Denies easy bleeding, easy bruising or lymphadenopathy Allergic/Immunologic Allergic/Immunologic ED: Denies mouth swelling EXAM Physical Exam Narrative Exam Narrative: 47-year-old female no acute distress. Vital signs are stable afebrile. Pulse ox 97% on room air no signs hypoxia. Patient is in no distress nor is having any painless takes a deep breath that she said it feels like a fist going to the middle of her chest and her back. No prior history. H EENT exam unremarkable. Neck nontender. Lungs clear to auscultation bilaterally. Heart regular rhythm no murmur. Chest wall nontender. Abdomen soft nontender normal bowel sounds no peritoneal signs. Moving all 4 extremities. Calves are nontender no edema no cords. Equal symmetrical radial pulses. Back exam nontender. Neurologically she is awake alert with no focal motor deficits. Patient is symptom-free unless she takes a deep breath. Const Vital Signs: 11/29/22 14:52 11/29/22 15:20 11/29/22 17:36 Temperature 97.9 F Temperature Source Temporal Pulse Rate 99 Respiratory Rate 22 H Respiratory Effort Normal Blood Pressure 141/94 H Blood Pressure Mean 109 Pulse Ox 97 Oxygen Delivery Method Room Air Room Air 11/29/22 16:00 11/29/22 17:30 Temperature Temperature Source Pulse Rate 69 61 Respiratory Rate 14 14 Respiratory Effort Blood Pressure 109/59 L 98/58 L Blood Pressure Mean 75 71 Pulse Ox 96 96 Oxygen Delivery Method Room Air Room Air Positive well nourished and well developed; Negative for cachectic, contractures or unkempt General Appearance ED: well developed and NAD; Negative for unkempt, cachectic, contractures or pallor Nutritional Appearance: Negative for cachectic HEENT Reports moist mucous membranes normocephalic and atraumatic; Negative for trauma or tenderness Eyes PERRL and EOMs intact bilaterally General Eye ED: Negative for pale conjunctiva or scleral icterus Neck no lymphadenopathy, supple and no JVD General: Negative for tenderness Chest Wall inspection of chest normal and palpation of chest normal Chest Narrative: No reproducible chest wall tenderness. Chest: Negative for tenderness Resp normal respiratory effort and clear to auscultation bilaterally Effort and Inspection: Negative for respiratory distress Auscultation: Negative for rales, rhonchi or wheezes Cardio regular rate, regular rhythm, S1 normal heart sound, S2 normal heart sound and no murmurs Rate: Negative for bradycardia or tachycardic Rhythm: Negative for abnormal rhythm Peripheral Pulses: pulses 2+ throughout GI normal to inspection, nondistended, normoactive bowel sounds, soft to palpation, non-tender, non-distended and no masses Auscultation: Negative for hyperactive bowel sounds Palpation: Negative for splenomegaly, mass or other Back/Spine no CVA tenderness and no thoracic nor lumbar tenderness General Back: Negative for CVA tenderness Cervical Spine: Negative for cervical spine tenderness Extremity normal to inspection General Extremety ED: Negative for edema, pulses abnormal or tenderness General Extremity: Negative for edema or pulses abnormal Neuro oriented x3 and CN's II-XII intact bilaterally Sensorium / Orientation: awake, alert, oriented to person, oriented to place and oriented to time; Negative for confused, lethargic or stuporous Motor Exam: strength 5/5 throughout; Negative for general weakness or strength abnormal Psych mental status grossly normal Appearance: Negative for unkempt Attitude: No agitated Mood & Affect: Negative for depressed or anxious Skin no rashes or lesions noted and no wounds General Skin Exam: Negative for jaundice or pallor Rashes: No rashes noted Trauma: Negative for abrasion, laceration or puncture Heart Score History: Slightly/Non-Suspicious ECG: Normal Age: </= 45 years Risk Factors: No Risk Factors Troponin: </= Normal Limit Score: 0 MDM MDM MDM Narrative Medical decision making narrative: 47-year-old female with atypical nonreproducible chest pain. No risk factors for DVT or PE. Negative chest x-ray EKG and troponin. Other labs are unremarkable. She will undergo a CTA to rule out a dissection or atypical pulmonary emboli but clinically she does not have any risk factors any prior history or physical findings of the PE. Or DVT. Repeat exam patient is doing well at 7 PM she will be discharged home. She and I went over her test results. History & Record Review Discussion w/independent historian: Patient Additional record(s) reviewed:: Prior inpatient record Lab Data Attestation: I reviewed the patient's lab results. Lab results narrative: CBC White count 1.2. H&H 13 and 43. Platelets 336. Electrolytes show a gap of 5. BUN and creatinine 19 and 9. Glucose of 101. Troponin 3. 2-hour troponin was normal at 4 also. CTA of the chest was normal no PE no dissection. Labs: Laboratory Results - last 24 hr 11/29/22 11/29/22 15:16 17:23 WBC 11.2 H RBC 4.93 Hgb 13.8 Hct 43.5 MCV 88.2 MCH 28.0 MCHC 31.7 L RDW Std Deviation 43.6 RDW Coeff of Rubén 13.5 Plt Count 336 MPV 9.0 Immature Gran % (Auto) 0.400 Neut % (Auto) 62.4 Lymph % (Auto) 28.8 [place] % (Auto) 6.7 Eos % (Auto) 1.2 Baso % (Auto) 0.5 Absolute Neuts (auto) 7.0 Absolute Lymphs (auto) 3.22 Nucleated RBC % 0 Sodium 139 Potassium 3.6 Chloride 110 H Carbon Dioxide 24.0 Anion Gap 5 BUN 19 H Creatinine 0.97 Estim Creat Clear Calc 78.37 Est GFR (MDRD) Af Amer 79 Est GFR (MDRD) Non-Af 65 BUN/Creatinine Ratio 19.5 Glucose 101 Calcium 8.7 Troponin I High Sens 3 4 Radiography Chest X-Ray - ED: 1 View, Read by ED Physician, Read by Radiologist, Normal, Heart, Lungs, Mediastinum, Bony Structures and No Acute Disease Diagnostic Testing: Clinical Impression(s) from Imaging Studies Chest X-Ray 11/29/22 15:20 IMPRESSION: Increased markings at the right lung base suggestive of early infiltrate. Follow-up recommended. Electronically Signed: Fabian Swain MD at 15:43 EDT , Chest CTA 11/29/22 15:52 IMPRESSION: Normal CTA chest examination, without a demonstrated pulmonary embolism or arterial dissection. Electronically Signed: Pranay Beavers MD at 17:31 EDT , Chest x-ray, portable, single view interpreted by myself and radiologist shows no acute abnormalities. Radiologist is reading increased markings in the right lung base. I agree with the patient has no physical or historical signs of developing pneumonia. Rhythm Strip Rhythm Strip: Sinus Rhythm Rate: 82 Ectopy: None EKG Initial EKG: Attestation: I personally reviewed and interpreted this EKG as follows: Interpretation: Sinus Rhythm and No Acute Injury Pattern Comments: Normal sinus rhythm rate 82 no acute signs of SC or ischemia. Incomplete right bundle branch block. Discharge Plan Triage Chief Complaint: Chest Pain ED Provider: Luiz Vuong Dx/Rx/DC Orders Clinical Impression: Chest pain Instructions: ED Chest Pain, Uncertain Cause Prescriptions: No Action prednisone 20 mg tablet 20 mg PO BID Qty: 10 0RF meloxicam 15 MG tablet 15 mg PO DAILY bupropion HCl 150 MG tablet extended release 24 hr 150 mg PO DAILY ondansetron 4 mg tablet,disintegrating 4 mg PO Q8H PRN (Reason: nausea and vomiting) Qty: 10 0RF Primary Care Provider: Brant Quigley Referrals: Brant Quigley MD [Primary Care Provider] - 3-5 Days if not improving Activity Restrictions/Additional Instructions: Motrin for pain. Follow-up with your doctor if not improving. All your test today were normal including your chest x-ray, EKG, blood work and CAT scan of your chest. No signs of heart attack or blood clots. Disposition Disposition: Home, Self Care
[2022-11-29 16:00] VITALS: BP 109/59; PULSE 69; RESP 14; O2SAT 96
[2022-11-29 17:24] LABS: Reflex Troponin-HS? (from REC) Y
[2022-11-29 17:30] VITALS: BP 98/58; PULSE 61; RESP 14; O2SAT 96
[2022-11-29 18:00] VITALS: BP 101/63; PULSE 59; RESP 15; O2SAT 96
[2022-11-29 18:05] LABS: Troponin-I HS 4 pg/mL (3.0-54.0)
== END 2022-11-29 19:30 | disposition home or self-care (01) ==
PROVIDERS: Emergency Provider Emergency Medicine; PCP Family Medicine; Visit Provider Emergency Medicine
DX: R07.89 Other chest pain (principal); Z87.891 Personal history of nicotine dependence
CPT/HCPCS: 71045; 71275; 80048; 84484; 85025; 93005; 99284; Q9967; A4216